=== PATIENT | male | born 1950 | race Caucasian/White ===

== ENCOUNTER → 2016-10-22 | Outpatient (CLI) | payer BC ==
--- NOTE | 2016-10-23 06:28 | RADONC ---
RADIATION ONCOLOGY FOLLOWUP NOTE DATE: 10/22/2016 CHART NUMBER: [id number] DIAGNOSIS: Prostate cancer stage III, [id number]. ECOG PERFORMANCE STATUS: 0. FOLLOWUP NOTE: Mr. Lewis is a very pleasant, 66-year-old white male with the diagnosis of a stage III, C1bC4S3, moderate to poorly differentiated Mandi score 7 (3-4) adenocarcinoma of the prostate who is presenting to us today for routine followup visit 6 years and 3 months post completion of external beam radiation therapy. The patient presents today reporting that he is doing quite well with no complaints at this time related to his radiation therapy or disease. He has no urinary or bowel difficulties. No bone pain. REVIEW OF SYSTEMS: The patient's review of systems is noncontributory. Denies nausea, vomiting, fevers, chills, night sweats, diplopia, headaches, anxiety or depression, anorexia, weight loss, visual disturbances, chest pain, urinary or bowel difficulties, bone pain, or neurological problems. PHYSICAL EXAMINATION: The patient is a well-developed, well-nourished male in no acute distress. HEENT exam is normocephalic, atraumatic. Extraocular movements are intact. There is no palpable cervical, supraclavicular, infraclavicular, axillary, or inguinal lymphadenopathy present. Lungs are clear to auscultation and percussion. Heart has a regular rate and rhythm. Abdomen is benign with no hepatosplenomegaly, masses, or tenderness. Rectal examination reveals a normal anal sphincter tone. His prostate bed is smooth with no evidence of nodularity. Skeletal examination reveals no tenderness to pressure or percussion of the bony skeleton. Extremities reveal no clubbing, cyanosis, or edema. Neurologic exam is grossly intact, as is the remainder of the physical examination. ASSESSMENT: The patient is clinically JATINDER at this time and will be seen by us again in 1 year for further followup. He will also continue to be followed by his other physicians as well. cc: MD Ciro Mane MD
== END ==
LOC: M ONCR 14:36
PROVIDERS: ATTEND Radiology Radiation Oncology
DX: C61 Malignant neoplasm of prostate (principal)

== ENCOUNTER → 2017-10-21 | Outpatient (CLI) | payer MEDICARE, BC | LOC: M ONCR 14:29 | DX: C61 Malignant neoplasm of prostate (principal) | CPT/HCPCS: G0463 ==

== ENCOUNTER → 2018-10-27 | Outpatient (CLI) | payer MEDICARE, BC ==
--- NOTE | 2018-10-29 07:53 | RADONC ---
RADIATION ONCOLOGY FOLLOWUP NOTE DATE: 10/27/2018 CHART #: [id number] DIAGNOSIS: Prostate cancer. STAGE: III, [id number]. ECOG PERFORMANCE STATUS: 0. FOLLOWUP NOTE: Mr. Lewis is a very pleasant 68-year-old man with a diagnosis of a moderately to poorly differentiated, Enterprise score 7 (3+4) adenocarcinoma of the prostate who presents for a routine followup visit approximately 8 years status post completion of external beam radiotherapy. REVIEW OF SYSTEMS: He denies any nausea, vomiting, diarrhea, dysuria, hematuria or blood per rectum. He also denies any bone pain. He denies any incontinence but does have erectile dysfunction. His energy level is such that he is able to maintain most day-to-day activities without any alteration of his lifestyle and he specifically denies any bone pain. The remainder of the review of systems is unchanged. PHYSICAL EXAMINATION: Well-developed, well-nourished male in no acute distress. HEENT: Normocephalic. EOMs intact. PERRLA. Fundi benign. Lymphatics: No palpable peripheral lymphadenopathy is appreciated. Lungs: Clear. Heart: Regular. Abdomen: Without evidence of hepatomegaly, masses, deep abdominal tenderness. Extremities: Without cyanosis, clubbing or edema. Neurologic Examination: Grossly physiologic and nonfocal. LABORATORY DATA: Most recent PSA revealed a level of less than 0.01 dated 10/26/2018. IMPRESSION: No evidence of disease clinically. PLAN: Return to clinic in 1 year. He was also instructed to return to his referring physicians as per their instructions and directions. cc: George Montemayor MD
== END ==
LOC: M ONCR 12:41
PROVIDERS: ATTEND Radiology Radiation Oncology
DX: Z85.46 Personal history of malignant neoplasm of prostate (principal); Z92.3 Personal history of irradiation

== ENCOUNTER → 2019-02-28 | Outpatient (REF) | payer MEDICARE, BC | LOC: M LAB LCGH 15:34 | PROVIDERS: ATTEND Surgery | DX: Z12.11 Encounter for screening for malignant neoplasm of colon (principal); Z80.0 Family history of malignant neoplasm of digestive organs; K63.5 Polyp of colon ==

== ENCOUNTER → 2019-10-26 | Outpatient (CLI) | payer MEDICARE, BC | LOC: M ONCR 09:23 | PROVIDERS: ATTEND General Practice | DX: C61 Malignant neoplasm of prostate (principal) ==